=== PATIENT | female | born 1985 | race Caucasian/White ===

== ENCOUNTER 2019-01-01 17:14 | Emergency (ER) | payer BC ==
[~2019-01-01] VITALS: Ht 162.6 cm; Wt 62.0 kg
[~2019-01-01 17:14] MED LIST: AMOXICILLIN500 MG OR; FLONASE SPRAY50 MC1; KEFLEX500 MG OR; NO MEDS; PREDNISONE20 MG OR; PRENATAL1 TAB OR; ROBITUSSIN AC10 ML OR
[2019-01-01 18:46] LABS: HEMATOCRIT 35.7 % (37.0-47.0); HEMOGLOBIN 11.7 g/dl (12.0-16.0); IMMATURE GRANULOCYTES 0.3 % (0.0-5.0); MEAN CELL VOLUME 86.2 fL CALC (80.0-100.0); MEAN CORPUSCULAR HGB 28.3 pG CALC (26.0-32.0); MEAN CORPUSCULAR HGB CONC 32.8 g/L CALC (32.0-36.0); NEUT# 5.19 thou/uL (2.00-7.15); RED BLOOD COUNT 4.14 mill/uL (4.20-5.60)
[2019-01-01 18:58] LABS: ANION GAP 14 (6-22 (CALC)); BUN 10 mg/dL (7-17); BUN/CREATININE RATIO 14 (12-20 (CALC)); CARBON DIOXIDE 24 mmol/l (22-30); CHLORIDE 103 mmol/l (95-108); CREATININE 0.7 mg/dL (0.5-1.0); GFR > 60 ML/MIN (>=60 (CALC)); GFR FOR AFR.AMER. > 60 ML/MIN (>=60 (CALC)); POTASSIUM 3.8 mmol/l (3.5-5.1); SODIUM 137 mmol/l (137-146)
[2019-01-01] MEDS ORDERED: FIORICET PO (20:02)
[2019-01-01 20:18] VITALS: BP 128/72
== END 2019-01-01 20:17 | disposition home or self-care (01) | DRG 90 ==
LOC: ED 17:14
PROVIDERS: Family Medicine
DX: S06.0X0A Concussion without loss of consciousness, initial encounter (principal); R51 Headache; W01.0XXA Fall on same level from slipping, tripping and stumbling without subsequent striking against object, initial encounter

== ENCOUNTER 2019-07-22 13:23 | Emergency (ER) | payer OTHER ==
[~2019-07-22] VITALS: Ht 162.6 cm; Wt 54.5 kg
[~2019-07-22 13:23] MED LIST changes: +FIORICET PO
[2019-07-22 16:30] VITALS: BP 119/68
[2019-07-22] MEDS ORDERED: FLEXERIL5 M1 PO (16:56)
== END 2019-07-22 17:07 | disposition home or self-care (01) | DRG 605 ==
LOC: ED 13:23
DX: S00.83XA Contusion of other part of head, initial encounter (principal); S80.02XA Contusion of left knee, initial encounter; S80.01XA Contusion of right knee, initial encounter; S90.32XA Contusion of left foot, initial encounter; S90.31XA Contusion of right foot, initial encounter; S70.212A Abrasion, left hip, initial encounter; F17.200 Nicotine dependence, unspecified, uncomplicated; V47.5XXA Car driver injured in collision with fixed or stationary object in traffic accident, initial encounter